=== PATIENT | female | born 1945 | race Caucasian/White ===

== ENCOUNTER 2024-06-06 07:55 | Day surgery (SDC) | payer MEDICARE, OTHER ==
[2024-06-06] VITALS (13 sets, daily range): BP systolic 75–126; BP diastolic 36–63; PULSE 59–71; TEMP 97.4–98.1
[~2024-06-06] VITALS: Ht 162.6 cm; Wt 43.2 kg
[~2024-06-06 07:55] MED LIST: ATIVAN 1MG T1 MG/TAB PO; NORCO 325 MG-51 TAB PO; REMERON30 MG PO; TENORMIN 2525 MG/TAB PO
--- NOTE | 2024-06-06 09:30 | NUR ---
The patient arrived to [facility] from nuclear medicine. She was assisted to stand and pivot from the wheelchair to the cart in her room and appered to tolerate the activity well. Vital signs obtained. Assessment completed. The patient has early onset dementia and her is her DPOA and signed her consents for her. 20G IV started in right wrist and blood was obtained from IV start for labs as ordered. and DPOA, Carlitos, remains at her bedside. Warm blankets provided. They both deny any further needs at this time.
--- NOTE | 2024-06-06 09:59 | NUR ---
The nurse spoke to Rashel in radiology regarding the patient's order for a chest x-ray and he stated that he "already did it" while she was in nuclear medicine. Respiratory therapy has also been notified of the patient's order for a pre op EKG.
[2024-06-06 10:05] LABS: BASO # 0.1 K/mm3 (0.0-0.2); BASO % 1.6 % (0.0-2.0); EOS # 0.1 K/mm3 (0.0-0.7); EOS % 2.7 % (0.0-4.0); GRAN # 2.3 K/mm3 (1.4-6.5); GRAN % 52.9 % (42.2-75.2); HEMATOCRIT 40.3 % (37.0-47.0); HEMOGLOBIN 13.6 g/dl (12.5-16.0); LYMPH # 1.5 K/mm3 (1.2-3.4); LYMPH % 33.3 % (20.0-51.0); MEAN CELL VOLUME 93 fl (80.0-100.0); MEAN CORPUSCULAR HEMOGLOBIN 32 pg (27-31); MEAN CORPUSCULAR HGB CONC 34 g/dl (33.0-37.0); MONO # 0.4 K/mm3 (0.1-0.6); MONO % 9.3 % (1.7-9.3); PLATELET COUNT 147 K/mm3 (130-400); RED BLOOD COUNT 4.32 M/mm3 (4.10-5.30); REDCELL DISTRIBUTION WIDTH-CV 12.4 % (11.5-14.5)
[2024-06-06 10:38] LABS: ALBUMIN 3.5 g/dL (3.4-4.8); BILIRUBIN,TOTAL 0.5 mg/dL (0.2-1.2); CALCIUM 9.4 mg/dL (8.4-10.2); CREATININE, serum 0.66 mg/dL (0.57-1.11); POTASSIUM 4.2 mEq/L (3.5-4.5)
[2024-06-06] MEDS ORDERED: PRISTIQ 50 MG T50 MG PO (11:33)
[2024-06-06] MEDS ORDERED: VITAMIN D31000 I1 PO (11:34)
[2024-06-06] MEDS ORDERED: AZO-STANDARD95 MG PO (11:34)
[2024-06-06] MEDS ORDERED: MIRALAX PA17 GM/Dose PO (11:35)
[2024-06-06] MEDS ORDERED: MELATONIN ER10 MG PO (11:35)
[2024-06-06] MEDS ORDERED: LR 1,000 ML IV SCH ×2 (11:47→15:00)
[2024-06-06] MEDS ORDERED: Scopolamine 1 MG Delivered 3-Day PATCH TD SCH (11:49)
[2024-06-06] MEDS ORDERED: Meclizine 25 MG TAB PO SCH (11:51)
[2024-06-06] MEDS ORDERED: fentaNYL 50 MCG/ML 2 ML VIAL ONE (12:05)
[2024-06-06] MEDS ORDERED: Midazolam 2 MG/2 ML VIAL ONE (12:05)
[2024-06-06] MEDS ORDERED: Lidocaine PF 2% (20 MG/ML) 5 ML VIAL ONE (12:05)
[2024-06-06] MEDS ORDERED: Lidocaine 1% w EPI (1:100,000) 20 ML Multi-Dose VIAL ONE (12:06)
[2024-06-06] MEDS ORDERED: Ondansetron 4 MG/2 ML VIAL ONE (13:04)
[2024-06-06] MEDS ORDERED: Glycopyrrolate 0.2 MG/ML 1 ML VIAL ONE (13:04)
[2024-06-06] MEDS ORDERED: ePHEDrine 50 MG/ML VIAL ONE (13:08)
[2024-06-06] MEDS ORDERED: fentaNYL 50 MCG/ML 1 ML SYRINGE/VIAL [PACU/SDC ONLY] IV PRN (13:15)
[2024-06-06] MEDS ORDERED: HYDROmorphone 1 MG/1 ML SYRINGE [PACU/SDC ONLY] IV PRN (13:15)
[2024-06-06] MEDS ORDERED: Meperidine 50 MG/ML 1 ML VIAL IV PRN (13:15)
[2024-06-06] MEDS ORDERED: Ondansetron 4 MG/2 ML VIAL IV PRN ×2 (13:15→15:00)
[2024-06-06] MEDS ORDERED: Phenylephrine 10 MG/ML VIAL ONE (13:17)
[2024-06-06] MEDS ORDERED: LR 1,000 ML IV ONE ×2 (13:20→23:15)
[2024-06-06] MEDS ORDERED: Topical Skin Adhesive 1 EACH (1 ML) TOP ONE (14:15)
[2024-06-06] MEDS ORDERED: Ketorolac 30 MG/ML VIAL ONE (14:30)
[2024-06-06] MEDS ORDERED: HYDROmorphone 0.5 MG/0.5 ML SYRINGE IV PRN (15:00)
[2024-06-06] MEDS ORDERED: Acetaminophen 325 MG TAB PO PRN (15:00)
[2024-06-06] MEDS ORDERED: LORazepam 1 MG TAB PO PRN (15:00)
--- NOTE | 2024-06-06 15:35 | NUR ---
spoke with DR Gonzalez and will consult hospitalist
--- NOTE | 2024-06-06 15:40 | NUR ---
Dr Aervalo notified of consult,
--- NOTE | 2024-06-06 15:45 | NUR ---
full assessment completed, see interventions for further info, she is alert and oriented but forgetful and repeats herself, is at bedside and he states he takes full care of her at home, she is WC dependent, he pivot transfers her from the bed to the WC and then to the bathroom, he states she will sometimes call when she needs to void but otherwise is incontinent and he changes her 3-4 times during the night, he states she gets very anxkous and this is worse at night and that is when he gives her most of the ativan, he also states she eats very little but does like mashed potatoes and white gravy, her eric dressing to left chest is CD&I, ROBERTA drain with gauze dressing, denies needs at this time
--- NOTE | 2024-06-06 16:15 | NUR ---
resting in bed, remains at bedside but will be going home soon
--- NOTE | 2024-06-06 17:15 | NUR ---
Dr Arevalo in to see patient
--- NOTE | 2024-06-06 17:45 | NUR ---
repositioned up in bed and is eating mashed potatoes and gravy
[2024-06-06] MEDS ORDERED: Polyethylene Glycol 3350 17 GM PDS PO SCH (18:00)
--- NOTE | 2024-06-06 19:00 | NUR ---
bedside shift report given to PEMA Díaz
--- NOTE | 2024-06-06 20:15 | NUR ---
Initial shift assessment done- confused/pleasant, left chest dressing dry/intact- wrapped with eric wrap,, dixie drain with sanguinous drainage, IV fluids of LR at 75cc/hr, repositioned, denies pain at this time, scd,s. Bed alarm on, close to nsg station/
[2024-06-06] MEDS ORDERED: Melatonin 3 MG TAB PO SCH (21:00)
[2024-06-06] MEDS ORDERED: LORazepam 1 MG TAB PO SCH (21:00)
[2024-06-06] MEDS ORDERED: Atenolol 25 MG TAB PO SCH (21:00)
--- NOTE | 2024-06-06 23:17 | NUR ---
Josr SCHAFER notified of B/P 87, will write orders for a IV fluid bolus.
[2024-06-07 03:00] VITALS: BP 104/58; PULSE 66; TEMP 98.2
--- NOTE | 2024-06-07 03:00 | NUR ---
Pt B/P is better after the IV bolus 104/58, IV fluids of LR at 75cc/hr at this time, chest dressing remains dry and intact, has been incontinent of urine x3 so far tonight- pt insists on wearing a pull up,, also scd,s are confusing to patient- keeping her awake-will turn off, she is denying pain at this time.
[2024-06-07 04:35] VITALS: BP_SYST 104
--- NOTE | 2024-06-07 05:32 | NUR ---
Given [place] for pain as ordered, alert/confused, very pleasant, 20cc out of ROBERTA
[2024-06-07 07:26] VITALS: BP 113/63; PULSE 65; TEMP 97.8
--- NOTE | 2024-06-07 08:00 | NUR ---
Patient laying in bed sleeping, easily awakened with verbal command. Alert, but confused. VSS. IV CDI, fluids infusing. Reports discomfort lf chest, pain medication given by prior nurse. Call light within reach. Bed alarm on. ROBERTA drain intact
[2024-06-07 09:00] VITALS: BP_SYST 113
[2024-06-07] MEDS ORDERED: Cholecalciferol (Vit D3) 1000 Units TAB PO SCH (09:00)
--- NOTE | 2024-06-07 09:44 | NUR ---
Initial visit; Patient appears somewhat confused and has trouble with recall. Team Truck Driver just visited with "Emilee" and did learn she was from [place] and her is alive and going to visit her today. Team Truck Driver wished her well and encouraged her to ask her nurse to help her order something to eat that appears more appetizing for her. She is very thin.
[2024-06-07 13:00] VITALS: BP_SYST 106
[2024-06-07 13:10] VITALS: BP 106/63; PULSE 62; TEMP 97.8
[2024-06-07] MEDS ORDERED: TYLENOL 325MG325 MG PO (13:47)
--- NOTE | 2024-06-07 14:09 | NUR ---
Precipitator Supervisor met with patient right after attending physician saw patient and put in discharge orders. Patient's , Carlitos (ph#[phone]) is at bedside. Patient reported her , Carlitos is DPOA-HC. Patient stated she is happy she gets to go home and denied any discharge planning needs.
--- NOTE | 2024-06-07 15:20 | NUR ---
Discharge paperwork reviewed with the patient and . Patient verbalized an understanding to follow doctors orders. IV removed, tip intact. Gauze and coban applied. ROBERTA drain 20ml out. Education provided and extra supplies given. Patient assisted with getting dressed and into personal wheelchair. No further needs expressed.
== END 2024-06-07 15:20 | disposition home or self-care (01) ==
LOC: SDCO 07:55 → MEDICAL 15:39 → SDCO 06-07 12:30
PROVIDERS: Surgery
DX: C50.912 Malignant neoplasm of unspecified site of left female breast (principal); I95.81 Postprocedural hypotension; F17.210 Nicotine dependence, cigarettes, uncomplicated
CPT/HCPCS: OP; A9520-JZ; J0665-JZ; J0690; J1170; J1885; J2250; J2371; J2405; J2704; J2795; J3010; J7120